=== PATIENT | female | born 1970 | race Caucasian/White ===

== ENCOUNTER → 2016-11-10 16:56 | Outpatient (CLI) | payer OTHER | END | disposition home or self-care (01) | LOC: D.MAMMO 16:56 | DX: Z12.31 Encounter for screening mammogram for malignant neoplasm of breast (principal) ==

== ENCOUNTER 2019-09-20 19:00 | Outpatient (CLI) | payer BC ==
[2013-12-15 07:33] VITALS: BMI 55.0
[~2019-09-20 19:00] MED LIST: PRAVACHOL20 MG PO; PROAIR HFA8.5 GM INH; PROTONIX40 MG PO; SINGULAIR10 MG PO; SYMBICORT 16010.2 GM INH
== END 2019-09-20 23:59 | disposition home or self-care (01) ==
LOC: D.MAMMO 19:00
PROVIDERS: ATTEND Clinical Nurse Specialist Family Health
DX: Z12.31 Encounter for screening mammogram for malignant neoplasm of breast (principal)